=== PATIENT | female | born 1995 | race Caucasian/White ===

== ENCOUNTER 2017-12-18 16:42 | Emergency (ER) | payer BC ==
[~2017-12-18] VITALS: Ht 162.6 cm; Wt 52.0 kg
[2017-12-18 16:54] VITALS: TEMP 36.4; Ht 162.6 cm; Wt 52.0 kg
[2017-12-18] MEDS ORDERED: KETOROLAC TROMETHAMINE 30 MG/ML VIAL IV STA (17:25)
--- NOTE | 2017-12-18 17:31 | EMERGENCY ROOM VISIT NOTE ---
History Report prepared by Jaci: Mala Koch Under the Supervision of: Dr. Nacho Pike M.D. First contact with patient: 17:16 Chief Complaint: ABDOMINAL PAIN Stated Complaint: PAIN IN ABDOMEN, RIGHT SIDE Nursing Triage Summary: Patient ambulatory to triage with a steady and upright gait, states "On Sunday, I had some pain on and off in my right side. It was on and off over the weekend. We drove here from [facility] today. When I got out of the car, the pain was severe when I stood up. I slept for two hours and decided to come here." Patient reports taking Tums and Pepto for the symptoms with no relief. Patient reports pain radiates into the right flank slightly. History of Present Illness The patient is a 22 year old female who presents to the Emergency Room with complaints of waxing and waning right lower quadrant abdominal pain beginning 4 days ago. She rates her pain at a 5/10 and describes the pain as a bloating pain. The patient states that her abdominal pain worsened today when she was driving back from [place]. The patient reports that she tried to sleep off the pain but that she woke up and could not move. The patient states that standing exacerbates her pain. She states that she has also been gassy and has had back pain, but denies having nausea, vomiting, and urinary symptoms. The patient denies having this type of pain before. The patient reports that she is about 1 week into her menstrual cycle. The patient denies having vaginal discharge and also denies a chance of . The patient denies having constipation. She denies a medical history of an ovarian cyst. Source of History: patient Onset: 4 days ago Position: abdomen (RLQ) Symptom Intensity: rated at a 5/10 Quality: other (bloating ) Timing: waxes/wanes Modifying Factors (Worsening): movement (standing ) Associated Symptoms: + back pain, No nausea, No vomiting, No urinary symptoms Note: Associated symptoms: gas Denies: vaginal discharge, a chance of , and constipation. Review of Systems See HPI for pertinent positives & negatives. A total of 10 systems reviewed and were otherwise negative. Past Medical & Surgical Medical Problems: (1) Pyloric stenosis Surgical Problems: (1) [place] teeth extracted Family History Cancer Social History Smoking Status: Never Smoker Marital Status: single Housing Status: lives with roommate Occupation Status: [employer] student Allergies Coded Allergies: No Known Allergies (Unverified , 12/18/17) Physical Exam Vital Signs Date Time Temp Pulse Resp B/P (MAP) Pulse Ox O2 Delivery O2 Flow Rate FiO2 12/18/17 21:06 75 18 98 12/18/17 21:00 114/68 12/18/17 20:51 78 98 12/18/17 20:36 69 99 12/18/17 20:31 118/62 12/18/17 20:06 80 100 12/18/17 20:01 109/70 12/18/17 20:00 75 16 100 Room Air 12/18/17 19:45 70 100 12/18/17 19:30 78 113/78 98 12/18/17 19:15 74 100 12/18/17 19:08 98/71 12/18/17 18:38 74 16 114/75 99 12/18/17 16:54 36.4 90 18 124/84 100 Room Air Physical Exam GENERAL: Patient is in no acute distress. HEENT: No acute trauma, normocephalic atraumatic, mucous membranes moist, no nasal congestion, no scleral icterus. NECK: No stridor, no adenopathy, no meningismus, trachea is midline. LUNGS: Clear to auscultation bilaterally, no wheeze, no rhonchi, breath sounds equal. HEART: Without murmurs gallops or rubs, regular rate and rhythm. ABDOMEN: Soft, tenderness in both lower quadrants, primarily the right lower quadrant, bowel sounds positive, no hernias, no peritonitis. EXTREMITIES: No cyanosis or edema, full range of motion of all the joints without pain or difficulty, no signs for acute trauma. NEUROLOGIC: Oriented x 3, no acute motor or sensory deficits, no focal weakness. SKIN: No rash, no jaundice, no diaphoresis. Medical Decision & Procedures ER Provider Diagnostic Interpretation: Radiology results as stated below per my review and radiologist interpretation: ABDOMEN LIMITED (US) HISTORY: 22 years-old Female ABDOMINAL PAIN acute generalized abdominal pain COMPARISON: Pelvic ultrasound of same day TECHNIQUE: Multiple real-time sonographic images of the abdominal right lower quadrant were obtained assessing grayscale appearance and color flow FINDINGS: The appendix is not diagnostically visualized. Nonenlarged lymph nodes of the right lower quadrant are seen, largest of which measures up to 1.5 x 0.5 x 0.4 cm, likely physiologic. No focal fluid collections, hypoperistaltic bowel, echogenic fat or hyperemia identified. IMPRESSION: Appendix not visualized. No secondary signs to suggest acute appendicitis. The above report was generated using voice recognition software. It may contain grammatical, syntax or spelling errors. Electronically signed by: Stephen Martinez M.D. 12/18/2017 6:33 PM Dictated Date/Time: 12/18/2017 6:31 PM EXAMINATION: PELVIC ULTRASOUND (transabdominal and endovaginal scanning) CLINICAL HISTORY: Pelvic pain, nausea, vomiting, diarrhea. COMPARISON STUDY: FINDINGS: The uterus measured 7.0 x 3.3 x 4.7 cm. The endometrial stripe measured 8 mm. The right ovary measured 35 x 15 x 38 mm. There is a 16 mm dominant follicle. The left ovary measured 28 x 15 x 23 mm. There is no ultrasonographic evidence of ovarian torsion. It should be noted that ovarian torsion can be present with normal Doppler ultrasonographic findings. There was no evidence of pathologic free pelvic fluid. IMPRESSION: Normal pelvic ultrasound. Electronically signed by: John Paul Watt M.D. 12/18/2017 6:32 PM Dictated Date/Time: 12/18/2017 6:31 PM ABDOMEN AND PELVIS CT WITH IV AND ORAL CONTRAST CT DOSE: 279.07 mGy.cm HISTORY: Acute generalized abdominal pain ABDOMINAL PAIN/GI TECHNIQUE: Multiaxial CT images of the abdomen and pelvis were performed following the use of intravenous and oral contrast. A dose lowering technique was utilized adhering to the principles of ALARA. COMPARISON STUDY: Pelvic ultrasound of same day. FINDINGS: Lung bases are generally clear. There is no pneumatosis or pneumoperitoneum identified. Imaged inferior cardiac chambers are unremarkable. The liver, gallbladder, spleen, pancreas and adrenal glands are unremarkable. The bilateral kidneys, ureters appear unremarkable. There is mild urinary bladder distention. Uterus and adnexa are unremarkable. Aorta is normal in course and caliber. No bulky adenopathy. There is no bowel obstruction or focal bowel wall thickening identified. The appendix appears normal within the right lower quadrant. Soft tissues are unremarkable. Bones appear intact. IMPRESSION: 1. No acute intra-abdominal or intrapelvic abnormality identified. Normal appendix. 2. No bowel obstruction or focal bowel wall thickening. Electronically signed by: Stephen Martinez M.D. 12/18/2017 8:49 PM Dictated Date/Time: 12/18/2017 8:44 PM Laboratory Results 12/18/17 17:20 Red Blood Count 4.69, Mean Corpuscular Volume 91.5, Mean Corpuscular Hemoglobin 31.8, Mean Corpuscular Hemoglobin Concent 34.7, Mean Platelet Volume 9.8, Neutrophils (%) (Auto) 53.1, Lymphocytes (%) (Auto) 35.3, Monocytes (%) (Auto) 8.5, Eosinophils (%) (Auto) 2.1, Basophils (%) (Auto) 0.8, Neutrophils # (Auto) 2.58, Lymphocytes # (Auto) 1.71, Monocytes # (Auto) 0.41, Eosinophils # (Auto) 0.10, Basophils # (Auto) 0.04 12/18/17 17:20 Test 12/18/17 17:12 12/18/17 17:20 Urine Color YELLOW Urine Appearance CLEAR (CLEAR) Urine pH 6.5 (4.5-7.5) Urine Specific [place] <= 1.005 (1.000-1.030) Urine Protein NEG (NEG) Urine Glucose (UA) NEG (NEG) Urine Ketones NEG (NEG) Urine Occult Blood NEG (NEG) Urine Nitrite NEG (NEG) Urine Bilirubin NEG (NEG) Urine Urobilinogen NEG (NEG) Urine Leukocyte Esterase NEG (NEG) White Blood Count 4.85 K/uL (4.8-10.8) Red Blood Count 4.69 M/uL (4.2-5.4) Hemoglobin 14.9 g/dL (12.0-16.0) Hematocrit 42.9 % (37-47) Mean Corpuscular Volume 91.5 fL (80-100) Mean Corpuscular Hemoglobin 31.8 pg (25-34) Mean Corpuscular Hemoglobin Concent 34.7 g/dl (32-36) Platelet Count 206 K/uL (130-400) Mean Platelet Volume 9.8 fL (7.4-10.4) Neutrophils (%) (Auto) 53.1 % Lymphocytes (%) (Auto) 35.3 % Monocytes (%) (Auto) 8.5 % Eosinophils (%) (Auto) 2.1 % Basophils (%) (Auto) 0.8 % Neutrophils # (Auto) 2.58 K/uL (1.4-6.5) Lymphocytes # (Auto) 1.71 K/uL (1.2-3.4) Monocytes # (Auto) 0.41 K/uL (0.11-0.59) Eosinophils # (Auto) 0.10 K/uL (0-0.5) Basophils # (Auto) 0.04 K/uL (0-0.2) RDW Standard Deviation 41.7 fL (36.4-46.3) RDW Coefficient of Variation 12.5 % (11.5-14.5) Immature Granulocyte % (Auto) 0.2 % Immature Granulocyte # (Auto) 0.01 K/uL (0.00-0.02) Anion Gap 5.0 mmol/L (3-11) Est Creatinine Clear Calc Drug Dose 93.7 ml/min Estimated GFR () 126.0 Estimated GFR (Non- 108.7 BUN/Creatinine Ratio 14.8 (10-20) Calcium Level 9.3 mg/dl (8.5-10.1) Total Bilirubin 0.5 mg/dl (0.2-1) Aspartate Amino Transf (AST/SGOT) 17 U/L (15-37) Alanine Aminotransferase (ALT/SGPT) 26 U/L (12-78) Alkaline Phosphatase 71 U/L (45-117) Total Protein 8.6 gm/dl (6.4-8.2) Albumin 4.5 gm/dl (3.4-5.0) Globulin 4.1 gm/dl (2.5-4.0) Albumin/Globulin Ratio 1.1 (0.9-2) Lipase 122 U/L (73-393) Human Chorionic Gonadotropin, Qual NEG (NEG) Laboratory results reviewed by me. Medications Administered Medications (Trade) Dose Ordered Sig/[place] Route Start Time Stop Time Status Last Admin Dose Admin Ketorolac Tromethamine (Toradol Inj) 30 mg NOW STAT IV 12/18/17 17:25 12/18/17 17:27 DC 12/18/17 17:34 30 MG ED Course 1717: The patient was evaluated in room C12. A complete history and physical exam was performed. 1725: Ordered Toradol Inj 30 mg IV. 1856: I updated the patient. We will go forward with the CT because we could not see the appendix on ultrasound. 2100: Reevaluated the patient. Discussed results and discharge instructions: She verbalized understanding and agreement. The patient is ready for discharge. Medical Decision The patient is a 22 year old female who presents to the ED with complaints of abdominal pain. Differential diagnoses considered include dehydration, musculoskeletal pain, ovarian cyst, , UTI, appendicitis, constipation, and hernia. There is no leukocytosis or concerning anemia. No significant electrolyte abnormality, kidney failure or hepatitis. There is no pancreatitis. Urinalysis does not show evidence for infection. testing is negative. Pelvic ultrasound does not show any evidence for ovarian torsion or for ovarian cyst. The appendix could not be visualized by ultrasound. Abdominal and pelvis CT shows a normal appendix, no acute surgical process by CT scan. The patient was not febrile, she was not toxic. There was no peritonitis. She did receive IV Toradol and this seems to have helped her pain. The cause for the pain is unclear. Certainly, this may be musculoskeletal discomfort. The patient was encouraged to return for worsening symptoms. She was warned about the possibility of an early appendicitis missed by CT scan. Medication Reconcilliation Current Medication List: was personally reviewed by me Blood Pressure Screening Patient's blood pressure: Normal blood pressure Impression Primary Impression: RLQ abdominal pain Scribe Attestation The scribe's documentation has been prepared under my direction and personally reviewed by me in its entirety. I confirm that the note above accurately reflects all work, treatment, procedures, and medical decision making performed by me. Departure Information Dispostion Home / Self-Care Referrals No Doctor, Assigned (PCP) [facility] Forms HOME CARE DOCUMENTATION FORM, IMPORTANT VISIT INFORMATION Patient Instructions My [facility] Additional Instructions motrin and or tylenol for pain heat may help rest no exercise until 100 percent better return for fever, vomiting or worsening pain as we discussed as early appendicitis is still possible
[2017-12-18 17:42] LABS: BASO % 0.8 %; BASO ABS # 0.04 K/uL (0-0.2); EOS % 2.1 %; HEMATOCRIT 42.9 % (37-47); HEMOGLOBIN 14.9 g/dL (12.0-16.0); IG# 0.01 K/uL (0.00-0.02); LYMPH % 35.3 %; LYMPH ABS # 1.71 K/uL (1.2-3.4); MEAN CELL VOLUME 91.5 fL (80-100); MEAN CORPUSCULAR HEMOGLOBIN 31.8 pg (25-34); MEAN CORPUSCULAR HGB CONC 34.7 g/dl (32-36); MEAN PLATELET VOLUME 9.8 fL (7.4-10.4); MONO % 8.5 %; MONO ABS # 0.41 K/uL (0.11-0.59); NEUT % 53.1 %; NEUT ABS # 2.58 K/uL (1.4-6.5); PLATELET COUNT 206 K/uL (130-400); RED CELL DISTRIBUTION WIDTH CV 12.5 % (11.5-14.5); RED CELL DISTRIBUTION WIDTH SD 41.7 fL (36.4-46.3); WHITE BLOOD COUNT 4.85 K/uL (4.8-10.8)
[2017-12-18] MEDS ORDERED: OPTIRAY 320 IV PRN (18:00)
[2017-12-18 18:01] LABS: ALBUMIN 4.5 gm/dl (3.4-5.0); CALCIUM 9.3 mg/dl (8.5-10.1); CREATININE 0.78 mg/dl (0.60-1.20); POTASSIUM 3.4 mmol/L (3.5-5.1)
[2017-12-18 18:04] LABS: TOTAL PROTEIN 8.6 gm/dl (6.4-8.2)
--- NOTE | 2017-12-18 18:33 | DIAGNOSTIC IMAGING REPORT ---
EXAMINATION: PELVIC ULTRASOUND (transabdominal and endovaginal scanning) CLINICAL HISTORY: Pelvic pain, nausea, vomiting, diarrhea. COMPARISON STUDY: FINDINGS: The uterus measured 7.0 x 3.3 x 4.7 cm. The endometrial stripe measured 8 mm. The right ovary measured 35 x 15 x 38 mm. There is a 16 mm dominant follicle. The left ovary measured 28 x 15 x 23 mm. There is no ultrasonographic evidence of ovarian torsion. It should be noted that ovarian torsion can be present with normal Doppler ultrasonographic findings. There was no evidence of pathologic free pelvic fluid. IMPRESSION: Normal pelvic ultrasound. Electronically signed by: John Paul Watt M.D. 12/18/2017 6:32 PM Dictated Date/Time: 12/18/2017 6:31 PM
--- NOTE | 2017-12-18 18:34 | DIAGNOSTIC IMAGING REPORT ---
ABDOMEN LIMITED (US) HISTORY: 22 years-old Female ABDOMINAL PAIN acute generalized abdominal pain COMPARISON: Pelvic ultrasound of same day TECHNIQUE: Multiple real-time sonographic images of the abdominal right lower quadrant were obtained assessing grayscale appearance and color flow FINDINGS: The appendix is not diagnostically visualized. Nonenlarged lymph nodes of the right lower quadrant are seen, largest of which measures up to 1.5 x 0.5 x 0.4 cm, likely physiologic. No focal fluid collections, hypoperistaltic bowel, echogenic fat or hyperemia identified. IMPRESSION: Appendix not visualized. No secondary signs to suggest acute appendicitis. The above report was generated using voice recognition software. It may contain grammatical, syntax or spelling errors. Electronically signed by: Stephen Martinez M.D. 12/18/2017 6:33 PM Dictated Date/Time: 12/18/2017 6:31 PM
--- NOTE | 2017-12-18 20:51 | DIAGNOSTIC IMAGING REPORT ---
ABDOMEN AND PELVIS CT WITH IV AND ORAL CONTRAST CT DOSE: 279.07 mGy.cm HISTORY: Acute generalized abdominal pain ABDOMINAL PAIN/GI TECHNIQUE: Multiaxial CT images of the abdomen and pelvis were performed following the use of intravenous and oral contrast. A dose lowering technique was utilized adhering to the principles of ALARA. COMPARISON STUDY: Pelvic ultrasound of same day. FINDINGS: Lung bases are generally clear. There is no pneumatosis or pneumoperitoneum identified. Imaged inferior cardiac chambers are unremarkable. The liver, gallbladder, spleen, pancreas and adrenal glands are unremarkable. The bilateral kidneys, ureters appear unremarkable. There is mild urinary bladder distention. Uterus and adnexa are unremarkable. Aorta is normal in course and caliber. No bulky adenopathy. There is no bowel obstruction or focal bowel wall thickening identified. The appendix appears normal within the right lower quadrant. Soft tissues are unremarkable. Bones appear intact. IMPRESSION: 1. No acute intra-abdominal or intrapelvic abnormality identified. Normal appendix. 2. No bowel obstruction or focal bowel wall thickening. Electronically signed by: Stephen Martinez M.D. 12/18/2017 8:49 PM Dictated Date/Time: 12/18/2017 8:44 PM
[2017-12-18 21:00] VITALS: BP 114/68
[2017-12-18 21:06] VITALS: PULSE 75; O2SAT 98
== END 2017-12-18 21:25 | disposition home or self-care (01) ==
LOC: C.EDB 16:45 → C.EDC 21:25
DX: R10.31 Right lower quadrant pain (principal); Z80.9 Family history of malignant neoplasm, unspecified